=== PATIENT | female | born 1950 | race Caucasian/White ===

== ENCOUNTER → 2017-07-21 | Day surgery (SDC) | payer MEDICARE, OTHER ==
[~2017-07-21] VITALS: Ht 154.9 cm; Wt 54.1 kg
[~2017-07-21] MED LIST: ASPI-516 CHEW; ASPI325T PO; CLOP75 PO; COMBAER INH; DIAZ5 PO; DIPH25 PO; IPRAAER INH; LIDOCAINE HCL 1% PF 5 ML SYRINGE OTHER ONE; MECL25 PO; METO10TA PO; PRED2.5T PO; PRED5PAK PO; PROM25TA10 PO; PROPOFOL 200 MG/20 ML AMP IV ONE; RANI150 PO; REGL5TAB PO; VENTAER INH; ZITHTAB OR; duoneb
--- NOTE | 2017-07-21 16:11 | GIPROC ---
[facility] [address] [facility]. [facility], [address] COLONOSCOPY PROCEDURE REPORT EXAM DATE: 07/21/2017 PATIENT NAME: Kay Brown MR #: [id number] BIRTHDATE: 1950 ENDOSCOPIST: Shay Woodard MD ORDER #: [id number] HAM PUMPER: Garry Hill RN STATUS: outpatient INDICATIONS: The patient is a 67 yr old female here for a colonoscopy due to average risk patient for colon cancer PROCEDURE PERFORMED: Colonoscopy, screening MEDICATIONS: None and Per Anesthesia. PREP QUALITY: fair ESTIMATED BLOOD LOSS: None CONSENT: The patient understands the risks and benefits of the procedure and understands that these risks include, but are not limited to: sedation, allergic reaction, infection, perforation and/or bleeding. Alternative means of evaluation and treatment include, among others: physical exam, x-rays, and/or surgical intervention. The patient elects to proceed with this endoscopic procedure. medical equipment was checked for proper function. Hand hygiene and appropriate measures for infection prevention was taken. After the risks, benefits and alternatives of the procedure were thoroughly explained, Informed consent was verified, confirmed and timeout was successfully executed by the treatment team. A digital exam revealed no abnormalities of the rectum The endoscope was introduced through the anus and advanced to the cecum, which was identified by both the appendix and ileocecal valve. The instrument was then slowly withdrawn as the colon was fully examined. COLON FINDINGS: The colonic mucosa appeared normal. Retroflexed views revealed no abnormalities The scope was then completely withdrawn from the patient and the procedure terminated. PROCEDURE WITHDRAWAL TIME:14.6minutes ADVERSE EVENTS: There were no complications. IMPRESSIONS: 1. The colonic mucosa appeared normal 2. Retroflexed views revealed no abnormalities 3. Revealed no abnormalities of the rectum RECOMMENDATIONS: 1. High fiber diet 2. Yearly hemoccult 3. Follow-up: GI Clinic PRN RECALL: Return 5 years Colonoscopy Shay Woodard MD eSigned: Shay Woodard MD 07/21/2017 4:11 PM cc:
--- NOTE | 2017-07-21 16:14 | GIPROC ---
[facility] [address] [facility]. [facility], [address] EGD PROCEDURE REPORT EXAM DATE: 07/21/2017 PATIENT NAME: Kay Brown MR #: [id number] BIRTHDATE: 1950 ATTENDING: Shay Woodard MD ORDER #: [id number] GRANITE POLISHER APPRENTICE: Garry Hill RN STATUS: outpatient INDICATIONS: The patient is a 67 yr old female here for an EGD due to bloating PROCEDURE PERFORMED: EGD, diagnostic MEDICATIONS: None and Per Anesthesia. TOPICAL ANESTHETIC: CONSENT: The patient understands the risks and benefits of the procedure and understands that these risks include, but are not limited to: sedation, allergic reaction, infection, perforation and/or bleeding. Alternative means of evaluation and treatment include, among others: physical exam, x-rays, and/or surgical intervention. The patient elects to proceed with this endoscopic procedure. medical equipment was checked for proper function. Hand hygiene and appropriate measures for infection prevention was taken. After the risks, benefits and alternatives of the procedure were thoroughly explained, Informed consent was verified, confirmed and timeout was successfully executed by the treatment team. The patient was anesthetized with topical anesthesia and the endoscope was introduced through the mouth and advanced to the second portion of the duodenum. Retroflexed views revealed no abnormalities The gastroscope was then slowly withdrawn and removed. ESOPHAGUS: The mucosa of the esophagus appeared normal. STOMACH: The mucosa of the stomach appeared normal. DUODENUM: The duodenal mucosa appeared normal. ADVERSE EVENTS: There were no complications. IMPRESSIONS: 1. The esophagus appeared normal 2. The mucosa of the stomach appeared normal 3. Normal duodenal mucosa 4. Retroflexed views revealed no abnormalities RECOMMENDATIONS: Follow-up: GI clinic 4 week(s) PATIENT CONDITION: stable DISPOSITION: Home REPEAT EXAM: Shay Woodard MD eSigned: Shay Woodard MD 07/21/2017 4:14 PM cc:
[2017-07-21 16:17] VITALS: BP 148/74; PULSE 86; RESP 16; TEMP 98.8; O2SAT 100
== END | disposition home or self-care (01) ==
LOC: ESDC 10:07
PROVIDERS: ATTEND Internal Medicine Gastroenterology
DX: R14.0 Abdominal distension (gaseous) (principal); K31.84 Gastroparesis; R10.9 Unspecified abdominal pain; K21.9 Gastro-esophageal reflux disease without esophagitis; F17.200 Nicotine dependence, unspecified, uncomplicated

== ENCOUNTER → 2017-10-20 | Outpatient (CLI) | payer MEDICARE ==
[~2017-10-20] VITALS: Ht 154.9 cm; Wt 51.7 kg
[~2017-10-20] MED LIST changes: +AFRI0.052 EACH NARE; +ALKATAB PO; -ASPI325T PO; +BENZ1CAP54 PO; +BENZOCAINE 20% ORAL SPR 60 ML CAN OROPHARYNG ONE; +CHLORHEXIDINE GLUCONATE 2 % 1 PACK (2 CLOTHS) TOPICAL PRN; -CLOP75 PO; -COMBAER INH; -DIPH25 PO; +FLUC100T2 PO; +LACTATED RINGER'S 1000 ML IV PRN; -LIDOCAINE HCL 1% PF 5 ML SYRINGE OTHER ONE; -MECL25 PO; -METO10TA PO; +METOPROLOL TARTRATE 25 MG TAB PO PRN; +POVIDONE IODINE 5% (ANTISEPSIS KIT) 4 APPLICATIONS EACH NARE PRN; -PRED5PAK PO; -PROPOFOL 200 MG/20 ML AMP IV ONE; -RANI150 PO; +RANI150T PO; +SIMV20TA PO; +SODIUM CHLORID 0.9% 500 ML IV PRN; -ZITHTAB OR; -duoneb
[2017-10-20 07:56] VITALS: BP 157/74; PULSE 97; RESP 16; TEMP 98.2; O2SAT 95
== END ==
LOC: HSDC 07:16
PROVIDERS: ATTEND Internal Medicine Gastroenterology
DX: K21.9 Gastro-esophageal reflux disease without esophagitis (principal); Z53.09 Procedure and treatment not carried out because of other contraindication
CPT/HCPCS: 99211; G0463

== ENCOUNTER → 2017-10-24 | Outpatient (CLI) | payer MEDICARE ==
[~2017-10-24] VITALS: Ht 154.9 cm; Wt 52.0 kg
[~2017-10-24] MED LIST changes: -BENZOCAINE 20% ORAL SPR 60 ML CAN OROPHARYNG ONE; +GLYCOPYRROLATE 1 MG/5 ML SYRINGE IV PUSH ONE; +LIDOCAINE HCL 1% PF 5 ML SYRINGE OTHER ONE; +ONDANSETRON HCL 4 MG/2 ML VIAL ONE; +PROPOFOL 200 MG/20 ML AMP IV ONE
--- NOTE | 2017-10-24 10:21 | GIPROC ---
[facility] [address] [facility]. [facility], [address] EGD PROCEDURE REPORT EXAM DATE: 10/24/2017 PATIENT NAME: Kay Brown MR #: [id number] BIRTHDATE: 1950 ATTENDING: Carine Williamson MD ORDER #: [id number] MANAGER FLIGHT OPERATIONS: Marlin Parr and Cassandra Bach STATUS: outpatient INDICATIONS: The patient is a 67 yr old female here for an EGD due to abnormal CT of the GI tract and dysphagia PROCEDURE PERFORMED: EGD w/ biopsy MEDICATIONS: None and Per Anesthesia. TOPICAL ANESTHETIC: none CONSENT: The patient understands the risks and benefits of the procedure and understands that these risks include, but are not limited to: sedation, allergic reaction, infection, perforation and/or bleeding. Alternative means of evaluation and treatment include, among others: physical exam, x-rays, and/or surgical intervention. The patient elects to proceed with this endoscopic procedure. medical equipment was checked for proper function. Hand hygiene and appropriate measures for infection prevention was taken. After the risks, benefits and alternatives of the procedure were thoroughly explained, Informed consent was verified, confirmed and timeout was successfully executed by the treatment team. The patient was anesthetized with topical anesthesia and the Pentax EG-[id number] endoscope was introduced through the mouth and advanced to the second portion of the duodenum. Retroflexion was performed and was normal The gastroscope was then slowly withdrawn and removed. ESOPHAGUS: The mucosa of the esophagus appeared normal. STOMACH: There was erythematous moderate gastritis in the entire examined stomach. Multiple biopsies were performed using cold forceps. Sample sent for histology. DUODENUM: The duodenal mucosa appeared normal in the 2nd part of the duodenum and duodenal bulb. ADVERSE EVENTS: There were no complications. IMPRESSIONS: 1. The esophagus appeared normal 2. There was erythematous gastritis in the entire examined stomach; multiple biopsies were performed 3. Normal duodenal mucosa in the 2nd part of the duodenum and duodenal bulb 4. Retroflexion was performed and was normal RECOMMENDATIONS: 1. Await biopsy results. Biopsy results will not be ready for 7-10 days. If you don't hear from us in two weeks, call our office for biopsy results. 2. Continue PPI PATIENT CONDITION: stable DISPOSITION: Observation REPEAT EXAM: NONE Carine Williamson MD eSigned: Carine Williamson MD 10/24/2017 10:21 AM cc: PATIENT NAME: Kay Brown MR#: [id number]
[2017-10-24 10:35] VITALS: BP 128/66; PULSE 97; RESP 18; TEMP 98.6; O2SAT 99
--- NOTE | 2017-10-25 23:14 | EKG ---
Date Performed: 10/24/2017 Time Performed: 08:58:24 PTAGE: 67 years EKG: ELECTRONIC VENTRICULAR PACEMAKER ABNORMAL RHYTHM ECG PREVIOUS TRACING : 11/07/2010 22.38 Compared to prior tracing, now Vpaced DOCTOR: Octaviano Polanco Interpretating Date/Time 10/25/2017 23:14:38
== END ==
LOC: HSDC 08:31
PROVIDERS: ATTEND Specialist
DX: R13.10 Dysphagia, unspecified (principal); R93.3 Abnormal findings on diagnostic imaging of other parts of digestive tract; R94.31 Abnormal electrocardiogram [ECG] [EKG]; Z95.0 Presence of cardiac pacemaker
CPT/HCPCS: 00731; 43239; 88305; 93005; J2405; J7120